=== PATIENT | female | born 1980 | race African-American/Black ===

== ENCOUNTER 2024-10-10 06:09 | Emergency (ER) | payer SELFPAY ==
[~2024-10-10] VITALS: Ht 165.1 cm; Wt 64.0 kg
[2024-10-10 06:20] VITALS: O2SAT 100
[2024-10-10 07:18] LABS: BASOPHILS % 0.7 % (0.0-2.0); EOSINOPHILS % 1.8 % (0.0-5.0); HEMATOCRIT. 40.0 % (36.0-48.0); HEMOGLOBIN. 13.2 g/dL (12.0-16.0); LYMPHOCYTES % 24.8 % (20.0-50.0); MEAN PLATELET VOLUME 8.3 fl (7.4-10.4); MONOCYTES % 10.5 % (2.0-8.0); NEUTROPHILS % 62.2 % (40.0-76.0); PLATELET 336 x1000/uL (130-400); RED BLOOD CELL COUNT 4.16 mill/uL (4.2-5.4); RED CELL DISTRIBUTION WIDTH 16.5 % (11.6-14.6)
[2024-10-10] MEDS: MECLIZINE 25MG TABLET PO ONE (07:32)
[2024-10-10] MEDS: ACETAMINOPHEN 325MG TABLET PO ONE (07:32)
[2024-10-10] MEDS: ACETAMINOPHEN 1000MG/100ML 100 ML IV ONE (07:33)
[2024-10-10 07:34] LABS: CREATININE 0.9 mg/dL (0.6-1.0); UREA NITROGEN BLOOD 10 mg/dL (9-23)
[2024-10-10 07:35] LABS: TROPONIN I HIGH SENSITIVITY < 4 ng/L (3.0-34)
[2024-10-10 07:36] LABS: ASPARTATE AMINOTRANSFERASE 19 IU/L (<34)
[2024-10-10 07:37] LABS: BILIRUBIN DIRECT 0.1 mg/dL (<=3.0); BILIRUBIN TOTAL 0.4 mg/dL (0.1-1.0); PROTEIN TOTAL 7.8 g/dL (6.0-8.3)
[2024-10-10] MEDS: METOCLOPRAMIDE HCL 10MG/2ML VIAL IV ONE (07:56)
[2024-10-10 08:27] LABS: HCG SCREEN NEGATIVE
[2024-10-10 09:22] VITALS: TEMP 36.8; O2SAT 100
[2024-10-10 10:02] VITALS: BP 169/111; PULSE 69; RESP 13; TEMP 98.24
== END 2024-10-10 10:36 | disposition left against medical advice (07) ==
LOC: ER 06:31 → EDBEDREQ 08:42 → EDBEDREQTM 08:42 → ENRESERV 09:07 → ER 10:36
DX: R42 Dizziness and giddiness (principal); M54.2 Cervicalgia; R51.9 Headache, unspecified; R06.02 Shortness of breath
CPT/HCPCS: 80076; 80048; 84703; 85025; 84484; 36415; 71045; 70450; 93005; 99285; J8597; J2765; Z7610; A4606; J0131

== ENCOUNTER 2024-10-10 13:36 | Emergency (ER) | payer SELFPAY ==
[~2024-10-10] VITALS: Ht 162.6 cm; Wt 64.0 kg
[2024-10-10 13:46] VITALS: O2SAT 99
[2024-10-10 16:53] LABS: *AMPHETAMINES SCREEN URINE NEGATIVE (NEGATIVE); *BARBITURATES SCREEN URINE NEGATIVE (NEGATIVE); *BENZODIAZEPINES SCREEN URINE NEGATIVE (NEGATIVE); *COCAINE SCREEN URINE NEGATIVE (NEGATIVE); CANNABINOID URINE SCREEN NEGATIVE (NEGATIVE); ECSTASY MDMA SCREEN URINE NEGATIVE (NEGATIVE); METHADONE URINE SCREEN NEGATIVE (NEGATIVE); OPIATES URINE SCREEN NEGATIVE (NEGATIVE); PHENCYCLIDINE URINE SCREEN NEGATIVE (NEGATIVE)
[2024-10-10 17:01] LABS: CLARITY URINE CLEAR (CLEAR); COLOR URINE YELLOW (YELLOW); GLUCOSE URINE NEGATIVE (NEGATIVE); KETONES URINE NEGATIVE (NEGATIVE); LEUKOCYTE ESTERASE URINE NEGATIVE (NEGATIVE); NITRITE URINE NEGATIVE (NEGATIVE); OCCULT BLOOD URINE NEGATIVE (NEGATIVE); PH URINE 5.5 (4.5-8.0); PROTEIN URINE TRACE (NEGATIVE); SPECIFIC GRAVITY URINE 1.025 (1.005-1.030); UROBILINOGEN URINE 0.2 E.U./dL (0.2-1.0)
[2024-10-10] MEDS: ACETAMINOPHEN 325MG TABLET PO STA (17:23)
[2024-10-10 18:00] LABS: BACTERIA URINE NONE SEEN; RBC URINE NONE SEEN /hpf (0-2); SQUAMOUS EPITHELIAL CELL URINE NONE SEEN /lpf (RARE/1+); WBC URINE NONE SEEN /hpf (0-2)
[2024-10-11] MEDS: ARIPIPRAZOLE 5MG TABLET PO SCH (12:08)
[2024-10-11] MEDS: NICOTINE 7MG PATCH TD ONE (15:26)
[2024-10-12 11:12] LABS: BASOPHILS % 0.6 % (0.0-2.0); EOSINOPHILS % 3.3 % (0.0-5.0); HEMATOCRIT. 41.7 % (36.0-48.0); HEMOGLOBIN. 13.7 g/dL (12.0-16.0); LYMPHOCYTES % 35.0 % (20.0-50.0); MEAN PLATELET VOLUME 8.3 fl (7.4-10.4); MONOCYTES % 12.0 % (2.0-8.0); NEUTROPHILS % 49.1 % (40.0-76.0); PLATELET 340 x1000/uL (130-400); RED BLOOD CELL COUNT 4.28 mill/uL (4.2-5.4); RED CELL DISTRIBUTION WIDTH 16.2 % (11.6-14.6)
[2024-10-12 11:24] LABS: CREATININE 0.9 mg/dL (0.6-1.0)
[2024-10-12 11:25] LABS: ETHANOL BLOOD < 10 mg/dL (<10); UREA NITROGEN BLOOD 9 mg/dL (9-23)
[2024-10-13] MEDS: NICOTINE 7MG PATCH TD ONE (01:49)
[2024-10-13 07:30] VITALS: BP 148/87; PULSE 68; RESP 16; TEMP 37.1; O2SAT 100
== END 2024-10-13 12:57 | disposition home or self-care (01) ==
LOC: ER 13:36
DX: R45.851 Suicidal ideations (principal); F20.9 Schizophrenia, unspecified; R51.9 Headache, unspecified; Z79.899 Other long term (current) drug therapy; Z20.822 Contact with and (suspected) exposure to COVID-19
CPT/HCPCS: 36415; 70490; 80048; 80305; 80320; 81003; 85025; 87426; 99285; G0480